=== PATIENT | male | born 1960 | race Caucasian/White ===

== ENCOUNTER 2020-09-21 05:25 | Emergency (ER) | payer OTHER ==
--- NOTE | 2020-09-21 05:40 | ED ---
Fall HPI - General Stated Complaint: Fall, head injury Time Seen by Provider: 09/21/20 05:29 Source: RN notes reviewed, old records reviewed, Caregiver Mode of arrival: EMS Limitations: altered mental status, physical limitation (Dementia) - History of Present Illness Initial Comments: This is a 60-year-old male DF status post fall patient is a fall with back injury follow-up head injury no blood thinners patient admits to significant alcohol intoxication drinking yesterday thinks he may have been on the ground for about an unknown amount of time. EMS did find patient here in the ER with active bleeding from his posterior occiput from a laceration. Patient presents for evaluation regarding fall and head injury MD Complaint: fall -: days(s) Fall From: standing When Fall Occurred: unsure Fall Witnessed: no Place Fall Occurred: detention/SNF Loss of Consciousness: none Prolonged Down Time?: no Symptoms Prior to Fall: none Location: head Severity: moderate Context: tripped/slipped, alcohol use Associated Symptoms: denies - Related Data Home Medications Medication Instructions Recorded Confirmed Magnesium 200 mg PO DAILY 09/21/20 09/21/20 Multivitamins, Thera [Multivitamin 1 tab PO DAILY 09/21/20 09/21/20 (formulary)] Naproxen Sodium [Aleve] 440 mg PO DAILY 09/21/20 09/21/20 Omeprazole 20 mg PO DAILY 09/21/20 09/21/20 Allergies Allergy/AdvReac Type Severity Reaction Status Date / Time Penicillins Allergy Rash/Hives Verified 09/21/20 06:45 Review of Systems ROS Statement: Those systems with pertinent positive or pertinent negative responses have been documented in the HPI. ROS Other: All systems not noted in ROS Statement are negative. General Exam - General Exam Comments Initial Comments: Patient does have had laceration Limitations: no limitations General appearance: alert, appears intoxicated, anxious Head exam: Present: normocephalic, normal inspection. Absent: atraumatic (Posterior scalp laceration) Eye exam: Present: normal appearance, PERRL, EOMI. Absent: scleral icterus, conjunctival injection, periorbital swelling ENT exam: Present: normal exam, mucous membranes moist Neck exam: Present: normal inspection. Absent: tenderness, meningismus, lymphadenopathy Respiratory exam: Present: normal lung sounds bilaterally. Absent: respiratory distress, wheezes, rales, rhonchi, stridor Cardiovascular Exam: Present: regular rate, normal rhythm, normal heart sounds. Absent: systolic murmur, diastolic murmur, rubs, gallop, clicks GI/Abdominal exam: Present: soft, normal bowel sounds. Absent: distended, tenderness, guarding, rebound, rigid Extremities exam: Present: normal inspection, full ROM, normal capillary refill. Absent: tenderness, pedal edema, joint swelling, calf tenderness Back exam: Present: normal inspection Neurological exam: Present: alert, oriented X3, CN II-XII intact Psychiatric exam: Present: normal affect, normal mood Skin exam: Present: warm, dry, intact, normal color. Absent: rash Course Vital Signs 09/21/20 05:27 Temperature 97.5 F L Pulse Rate 55 L Respiratory 16 Rate Blood Pressure 178/70 O2 Sat by Pulse 96 Oximetry - Reevaluation(s) Reevaluation #1: 09/21/20 06:06 Medical record is reviewed Reevaluation #2: 09/21/20 06:06 Patient again remains without complaint maybe some back pain at times with controlling her moving Patient is alert aware, intoxicated but able answer questions Reevaluation #3: 09/21/20 06:07 Spoke with patient regarding results of findings, questions answered Patient is awake and alert patient regarding need for transfer secondary to findings on computed tomography scan, he is agreeable - Consultations Consultation #1: spoke radha Brizuela who agree to accept transfer Procedures - Laceration Laceration #1 Consent Obtained: verbal consent Indication: laceration Site: scalp (Occiput) Size (cm): 7 Description: flap Size of Sutures: other (Erik) Technique: simple, interrupted Complications: pain Patient Tolerated Procedure: well Medical Decision Making - Medical Decision Making 60 male to the ER for evaluation patient does have fall with injury, scalp laceration which is repaired with erik and patient is intoxicated, patient isn't found to have cerebral contusion to colon with occipital hematoma. Patient be transferred [facility] for traumatic and neurosurgical evaluation Disposition Clinical Impression: Fall, Head injury, Alcohol intoxication, Occipital scalp laceration, Cerebral contusion Disposition: TRANSFER TO PSYCH HOSP/UNIT Condition: Good Instructions (If sedation given, give patient instructions): Fall Prevention for Older Adults (ED), Head Injury (ED), Staple Care (ED) Is patient prescribed a controlled substance at d/c from ED?: No Referrals: None,Stated [Primary Care Provider] - 1-2 days - Out of Hospital Transfer - Req. Specs Out of Hospital Transfer - Requested Specifics: Other Emergency Center ([facility])
[2020-09-21 05:44] VITALS: RESP 16; TEMP 97.5
--- NOTE | 2020-09-21 06:23 | CT ---
EXAM: CT Head Without Intravenous Contrast CLINICAL HISTORY: Reason: fall TECHNIQUE: Axial computed tomography images of the head/brain without intravenous contrast. CTDI is 45.2 mGy and DLP is 975.7 mGy-cm. This CT exam was performed using one or more of the following dose reduction techniques: automated exposure control, adjustment of the mA and/or kV according to patient size, and/or use of iterative reconstruction technique. COMPARISON: No relevant prior studies available. FINDINGS: Brain: Probable small hemorrhagic contusion/contrecoup injury along the anterior, parasagittal right frontal lobe (image 20 of series 201). No significant mass effect. No midline shift. Ventricles: Ventricular volumes are within normal limits. Bones/joints: No acute calvarial fracture. Soft tissues: Moderate left parietal scalp soft tissue swelling. Sinuses: Unremarkable as visualized. No acute sinusitis. Mastoid air cells: Unremarkable as visualized. No mastoid effusion. IMPRESSION: Probable small hemorrhagic contusion along the anterior parasagittal right frontal lobe convexity. Recommend short-term follow-up CT head within 8 hours for reevaluation. No mass effect or midline shift. No calvarial fracture. No hydrocephalus. EXAM: CT Cervical Spine Without Intravenous Contrast CLINICAL HISTORY: Reason: fall TECHNIQUE: Axial computed tomography images of the cervical spine without intravenous contrast. CTDI is 13.5 mGy and DLP is 382.5 mGy-cm. This CT exam was performed using one or more of the following dose reduction techniques: automated exposure control, adjustment of the mA and/or kV according to patient size, and/or use of iterative reconstruction technique. COMPARISON: No relevant prior studies available. FINDINGS: Vertebrae: No evidence of acute fracture. No subluxation. Discs/spinal canal/neural foramina: No acute findings. No spinal canal stenosis. Mild multilevel degenerative changes. Soft tissues: Unremarkable. IMPRESSION: No evidence of acute fracture or malalignment of the cervical spine. <MYCVCSECTION> Communications: 09/21/20 06:26 Call Doctor Regarding Intracranial Hemorrhage, called Dr. Long on 09/21 06:26 (-05:00)
[2020-09-21] MEDS ORDERED: SODIUM CHLORIDE 0.9% 1,000 ML IV STA (06:52)
[2020-09-21 07:33] LABS: Basophils % (A) 0 %; Eosinophils # (A) 0.2 k/uL (0-0.7); Eosinophils % (A) 2 %; HCT 48.4 % (39.0-53.0); HGB 16.1 gm/dL (13.0-17.5); Lymphocytes # (A) 1.7 k/uL (1.0-4.8); Lymphocytes % (A) 19 %; MCH 33.8 pg (25.0-35.0); MCHC 33.3 g/dL (31.0-37.0); MCV 101.4 fL (80.0-100.0); Macrocytosis Slight; Mean Platelet Volume 7.4; Monocytes # (A) 0.6 k/uL (0-1.0); Monocytes % (A) 7 %; Neutrophils # (A) 6.2 k/uL (1.3-7.7); Neutrophils % (A) 69 %; Platelet Count 270 k/uL (150-450); RBC 4.78 m/uL (4.30-5.90); RDW 13.4 % (11.5-15.5); WBC 8.9 k/uL (3.8-10.6)
[2020-09-21 07:40] LABS: INR 0.9 (<1.2); Partial Thromboplastin Time 24.2 sec (22.0-30.0); Prothrombin Time 9.9 sec (9.0-12.0)
[2020-09-21 07:56] VITALS: BP 164/79; PULSE 63
[2020-09-21 08:07] LABS: ALT 26 U/L (4-49); AST 35 U/L (17-59); African American GFR (CKD) >90 (>60 ml/min/1.73 sqM); Albumin 3.8 g/dL (3.5-5.0); Alkaline Phosphatase 113 U/L (38-126); Anion Gap 7 mmol/L; Blood Urea Nitrogen 6 mg/dL (9-20); Calcium 9.1 mg/dL (8.4-10.2); Carbon Dioxide 24 mmol/L (22-30); Chloride 104 mmol/L (98-107); Creatine Kinase 93 U/L (55-170); Glucose 100 mg/dL (74-99); Magnesium 1.9 mg/dL (1.6-2.3); Non-African American GFR(CKD) >90 (>60 ml/min/1.73 sqM); Phosphorus 3.3 mg/dL (2.5-4.5); Sodium 135 mmol/L (137-145); Total Bilirubin 0.5 mg/dL (0.2-1.3); Total Protein 6.7 g/dL (6.3-8.2)
[2020-09-21 08:13] LABS: Alcohol 124 mg/dL
== END 2020-09-21 07:56 ==
LOC: EC 05:25
DX: S01.01XA Laceration without foreign body of scalp, initial encounter (principal); F10.129 Alcohol abuse with intoxication, unspecified; S06.339A Contusion and laceration of cerebrum, unspecified, with loss of consciousness of unspecified duration, initial encounter; Z79.899 Other long term (current) drug therapy; Z88.0 Allergy status to penicillin; W18.30XA Fall on same level, unspecified, initial encounter
CPT/HCPCS: 99284 ×2; 12002 ×2; 36415; 80053; 82550; 83735; 84100; 84484; 85025; 85610; 85730; 72125; 70450; G0480; 80320